=== PATIENT | male | born 1945 | race Caucasian/White ===

== ENCOUNTER 2016-12-16 13:13 | Emergency (ER) | payer MEDICARE ==
--- NOTE | ~2016-12-16 | CN ---
Consultation Report [facility] [address] [place]. [address] NAME: PERRY VIRAMONTES : 47 STATUS : REG ER PAT#: [id number] AGE: 71 ADM/REG DATE : 12/16/16 MR#: [id number] REPORT SERV DATE: 12/16/16 DICTATED BY: HERI SHEPHERD DATE: 12/16/16 REPORT STATUS : Draft TRANSCRIBED BY: MODEdouard DATE: 12/16/16 PALLIATIVE CARE CONSULTATION IN THE EMERGENCY ROOM. A TOTAL OF 60 MINUTES IS CONSUMED IN THIS HOSPITAL EVALUATION. TIME OF ARRIVAL WAS 1220 HOURS. END OF INTERVENTION WAS 1320 HOURS. BRIEFLY, WE ARE FACED WITH A RATHER UNFORTUNATE 71-YEAR-OLD GENTLEMAN WHO LATE LAST YEAR WAS DIAGNOSED WITH WHAT APPEARED TO BE PANCREATIC CANCER. EVALUATION AND MANAGEMENT WERE BEING CARRIED OUT. HOWEVER, HE WAS HOSPITALIZED ON 11/29/2016 WITH ABDOMINAL PAIN, BLACK STOOLS, AND JAUNDICE. SUBSEQUENT FINDINGS INCLUDED THOSE OF EXTENSIVE PANCREATIC CANCER. ATTEMPTS AT A SHUNT PLACEMENT WERE UNSUCCESSFUL. HE UNFORTUNATELY HAS MEDICAL COMPLICATIONS THAT MAKE COMPLETE REVERSAL OF HIS ANTICOAGULATION HAZARDOUS. HE PRESENTS TO THE EMERGENCY ROOM TODAY EVIDENTLY HAVING PRESENTED TO [facility] FOR THE INITIATION OF OUTPATIENT CHEMOTHERAPY WITH AN EPISODE OF HEMOPTYSIS AND HEMATEMESIS WHICH RESULTED IN HYPOTENSION, DIAPHORESIS, AND BRADYCARDIA. HE WAS EMERGENTLY BROUGHT TO THE ER WHERE HE WAS STABILIZED WITH FLUIDS. LABORATORY DATA IS REVIEWED. HIS CURRENT HEMOGLOBIN AFTER FLUIDS IS 10 AND 30, I DO NOT HAVE HIS INR AT HAND. WE ARE ASKED TO SEE HIM NOW WITH REGARD TO POSSIBLE CARE OPTIONS. DATE OF CONSULTATION: 12/16/2016 PAST MEDICAL HISTORY: Includes nephrolithiasis, colon polyps, chronic kidney disease stage 3, and a mitral valve replacement with a mechanical mitral valve, on chronic anticoagulation. The patient also sleeps with CPAP and has obstructive sleep apnea. He has had a DVT as well, which is his second reason for anticoagulation. His records suggest that he had an episode of HIT to both heparin and Lovenox. SOCIAL HISTORY: He has been to his of 30 years. He was a one martini at night drinker. Stopped smoking many years ago. He used to work at the [employer]. There are number of children in the family, they appear to be the 's. His current hemoglobin is 10.7, hematocrit 32.9, platelet count is 240,000, white count is 8400. His INR is 2.9 with no anticoagulation for a number of days consistent with underlying liver failure. His potassium is 3.4. His creatinine is elevated at 3.37, it was two weeks ago. His albumin is 2.6. His liver functions are markedly elevated as his CA-19- 9 which was 104,161 on 11/30/2016. A CT scan performed on 11/29/2016 showed decreased attenuation within the liver consistent with metastatic disease. The pancreatic head was also enlarged. An umbilical hernia was incidentally identified. Examination in the emergency room shows an awake, alert, very icteric gentleman who is highly desirous of going home. Cuffed blood pressures are around 70/40. However, he is awake, alert, and sitting by the side of the bed complaining of back discomfort. His resting heart rate is 80, it had been as low as 38. Consultation Report [facility] [address] [address] [place]. [address] NAME: PERRY VIRAMONTES : 47 STATUS : REG ER PAT#: [id number] AGE: 71 ADM/REG DATE : 12/16/16 MR#: [id number] REPORT SERV DATE: 12/16/16 DICTATED BY: HERI SHEPHERD DATE: 12/16/16 REPORT STATUS : Draft TRANSCRIBED BY: JANICE DATE: 12/16/16 I met with the patient's and subsequently one of her daughters. Options and discussions of care occurred. We clarified with Dr. Person who was in attendance that chemotherapy and active cancer treatment was at this moment no longer an option. We felt that the tumor itself was probably the bleeding source and that endoscopy or interventional procedures probably would not change the situation. Attempted decompression of his liver have already been attempted without success. At this point, the patient is highly desirous of going home but, between the 's physical limitations and frankly her rather emotional state given the rapid transition of his problems, I believe that the initiation of hospice services would be the most prudent measure. I think that with him in a GIP status for optimal symptom control and, transition, teaching, and the equipment mobilization, that this would probably be the safest and most efficacious way of proceeding. I do not see a need for him to become inpatient here unless there really is going to be a protracted delay in getting him admitted to hospice. The patient is grudgingly willing to admit that "whatever my wants" is the course of therapy he is willing to pursue at this time. He is however very desirous of getting home. I have told him that hopefully a fairly rapid period of GIP status will allow for optimal management of both him and the logistics of getting him into hospice care. His resuscitation status was clarified, he is DNR, and the appropriate orders were also written. Questions were answered, guidance was provided, and discussion with the other members of the care team was carried out. DIAGNOSES: 1. Stage IV pancreatic cancer with gastrointestinal bleed. 2. Hypotension. 3. Obesity. 4. Clear evidence of liver and renal failure on the basis of progressive disease. Unfortunately, this gentleman's prognosis can be measured in hours to perhaps a week or two, if his situation does not stabilize. RAISA/JANICE Heri Shepherd M.D. / [id number] CC: Reinaldo Barbour MD Consultation Report [address] [address] NAME: PERRY VIRAMONTES : 47 STATUS : REG ER PAT#: [id number] AGE: 71 ADM/REG DATE : 12/16/16 MR#: [id number] REPORT SERV DATE: 12/16/16 DICTATED BY: HERI SHEPHERD DATE: 12/16/16 REPORT STATUS : Draft TRANSCRIBED BY: JANICE DATE: 12/16/16 Lefty Hudson M.D.
[2016-12-16 11:59] LABS: BASOPHILS 0.2 %; BASOPHILS ABSOLUTE 0.02 10/3/uL (0.0-0.16); EOSINOPHILS 1.4 %; EOSINOPHILS ABSOLUTE 0.12 10/3/uL (0.0-0.53); HEMOGLOBIN 10.7 g/dL (13.6-17.8); IMMATURE GRANULOCYTES 0.4 %; IMMATURE GRANULOCYTES ABSOLUTE 0.03 10/3/uL (0.0-0.11); LYMPHOCYTES 7.2 %; LYMPHOCYTES ABSOLUTE 0.61 10/3/uL (0.67-4.30); MEAN CORPUS HGB CONC 32.5 g/dL (32.0-36.0); MEAN CORPUSCULAR HEMOGLOB 30.1 pg (26.0-34.0); MEAN PLATELET VOLUME 10.4 fL (9.2-13.0); MONOCYTES 12.8 %; MONOCYTES ABSOLUTE 1.08 10/3/uL (0.21-1.20); NEUTROPHILS ABSOLUTE 6.57 10/3/uL (2.02-8.40); PLATELET COUNT 240 10/3/uL (150-400); RED CELL COUNT 3.55 10/6/uL (4.7-6.1)
[2016-12-16 12:00] LABS: HEMATOCRIT 32.9 % (40.0-51.0); MANUAL DIFF NO %; MEAN CORPUSCULAR VOLUME 92.7 fL (80-100); WHITE BLOOD CELLS 8.4 10/3/uL (4.5-10.5)
[2016-12-16 12:06] LABS: INTERNATIONAL NORMAL RATI 2.9 UNITS (-); PARTIAL THROMBO TIME 44.3 SEC (22.5-37.2)
[2016-12-16 12:08] LABS: PROTIME (NOT ORD) 30.1 SEC (12.0-14.5)
[2016-12-16 12:27] LABS: ALBUMIN 2.6 G/DL (3.5-5.0); CALCIUM, SERUM 9.5 MG/DL (8.5-10.4); CHLORIDE, SERUM 94 MMOL/L (96-112); POTASSIUM, SERUM 3.4 MMOL/L (3.5-5.3); SGOT(AST) 308 U/L (5-40); SGPT(ALT) 216 U/L (5-65); SODIUM, SERUM 137 MMOL/L (135-148)
[2016-12-16 12:28] LABS: A/G RATIO 0.6 (0.7-1.9); ALKALINE PHOSPHATASE 911 U/L (45-117); BUN (BLOOD UREA NITROGEN) 52 MG/DL (6-23); CO2 (CARBON DIOXIDE) 29 MMOL/L (24-34); CREATININE 3.37 MG/DL (0.70-1.30); GFR AFRICAN AMERICAN 20 ML/MIN (>=60); GFR NON AFRICAN AMERICAN 17 ML/MIN (>=60); GLOBULIN 4.4 G/DL (2.5-4.1); GLUCOSE, SERUM 154 MG/DL (60-99); TOTAL BILIRUBIN 21.4 MG/DL (0-1.2)
[~2016-12-16 13:13] MED LIST: ADALAT CC60 MG PO; ARIXTRA SC; ASAB PO; C25 PO; COQ-10200 MG PO; COREG12 PO; COREG25 PO; COUMADIN10 MG PO; COUMADIN7.5 MG PO; COZAAR100 MG PO; CYANO1000T PO; FOLIC PO; GREEN TEA PO; JANTOVEN PO; JANTOVEN4 MG PO; KDUR20 PO; KLONO1 PO; KLONO5 PO; KLOR-CON M2020 MEQ PO; L20 PO; L40 PO; L80 PO; LEXAPRO10 PO; LIPITOR40 PO; MSCONT15 PO; NORV5 PO; NXL6 PO; OXYCOD PO; PAXIL40 MG PO; PERCOCET1 TA2 PO; PRAVACHOL80 MG PO; PROTONIX PO; TEKTURNA300 MG PO; VITAMIN C PO; VITAMIN D2000 UNIT PO; VITE1000 PO; X25 PO; ZOFRAN4; ZOL100 PO
== END 2016-12-16 17:56 | disposition admitted as inpatient to this hospital (09) ==
LOC: ER 13:13
PROVIDERS: Emergency Medicine
DX: K92.2 Gastrointestinal hemorrhage, unspecified (principal); I95.1 Orthostatic hypotension; C25.9 Malignant neoplasm of pancreas, unspecified; Z87.891 Personal history of nicotine dependence; I12.9 Hypertensive chronic kidney disease with stage 1 through stage 4 chronic kidney disease, or unspecified chronic kidney disease; N18.9 Chronic kidney disease, unspecified; Z87.442 Personal history of urinary calculi; F32.9 Major depressive disorder, single episode, unspecified; Z88.8 Allergy status to other drugs, medicaments and biological substances; Z79.899 Other long term (current) drug therapy; Z79.82 Long term (current) use of aspirin
CPT/HCPCS: 36415; 36430; 80053; 85025; 85610; 85730; 86850; 86900; 86901; 86920; 93005; 96365; 99285; C9113; J2405